=== PATIENT | female | born 1990 | race American Indian/Alaskan Native ===

== ENCOUNTER 2017-08-08 13:19 | Emergency (ER) | payer MEDICAID ==
[2017-08-08 13:46] VITALS: BP 130/90
[2017-08-08] MEDS ORDERED: BENADRYL IM ONE (14:15)
[2017-08-08] MEDS ORDERED: REGLAN IM STA (14:15)
[2017-08-08] MEDS ORDERED: DECADRON IM ONE (14:15)
--- NOTE | 2017-08-08 15:36 | Emergency Department Report ---
HPI - General Chief Complaint: Allergic Reaction Time Seen by Provider: 08/08/17 14:09 - HPI HPI: pt is a 27+ y/o aaf nmh who presents for allergic reaction itching lip and tongue swelling after using cleaning chemical last night at work. 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 ED Past Medical Hx - Past Medical History Previous Medical History?: No - Surgical History Past Surgical History?: No - Social History Smoking Status: Never Smoker Substance Use Type: None - Medications Home Medications: Home Medications Medication Instructions Recorded Confirmed Last Taken Type Dexamethasone [Decadron] 4 mg PO Q12H #10 tablet 08/08/17 Unknown Rx EPINEPHrine [Epipen 2-Kris] 0.3 mg IJ ONCE #2 auto.injct 08/08/17 Unknown Rx Metoclopramide [Reglan] 10 mg PO TID #28 tab 08/08/17 Unknown Rx diphenhydrAMINE [Benadryl CAP] 25 mg PO Q6HR PRN #30 capsule 08/08/17 Unknown Rx ED Review of Systems ROS: Stated complaint: POSSIBLE ALLERGIC REACTION Other details as noted in HPI Constitutional: denies: chills, fever Eyes: denies: eye pain, eye discharge, vision change ENT: denies: ear pain, throat pain Respiratory: denies: cough, orthopnea, shortness of breath, SOB with exertion, stridor, wheezing Cardiovascular: denies: chest pain, palpitations Endocrine: no symptoms reported Gastrointestinal: denies: abdominal pain, nausea, diarrhea Genitourinary: denies: urgency, dysuria, discharge Musculoskeletal: denies: back pain, joint swelling, arthralgia Skin: denies: rash, lesions Neurological: denies: headache, weakness, paresthesias Psychiatric: denies: anxiety, depression Hematological/Lymphatic: denies: easy bleeding, easy bruising Physical Exam - Physical Exam Vital Signs: Vital Signs 08/08/17 13:41 Temperature 98.6 F Pulse Rate 88 Respiratory 16 Rate Blood Pressure 130/90 O2 Sat by Pulse 100 Oximetry General: pt appears nontoxic a/o x 3 there is no rash hive mild swelling to left lower lip and tongue no blisters no lesion no exudate no stridor uvula midline airway is patent lungs clear bilat no wheezing. Physical Exam: a/o x 3 there is no rash hive mild swelling to left lower lip and tongue no blisters no lesion no exudate no stridor uvula midline airway is patent lungs clear bilat no wheezing. ED Course Vital Signs 08/08/17 13:41 Temperature 98.6 F Pulse Rate 88 Respiratory 16 Rate Blood Pressure 130/90 O2 Sat by Pulse 100 Oximetry ED Medical Decision Making - Medical Decision Making pt is a 27+ y/o aaf vth who presents for allergic reaction itching lip and tongue swelling after using cleaning chemical last night at work. 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 pt given decadron, benadryl, and reglan in ed resulting in resolution of symptoms exam: pt appears nontoxic a/o x 3 there is no rash hive mild swelling to left lower lip and tongue no blisters no lesion no exudate no stridor uvula midline airway is patent lungs clear bilat no wheezing. pt advises symptoms relieved will dc to home with benadry, reglan, decadron pt given directions on when to return to ed include increased sob, worsening symptoms and epipen teaching pt verbalized agreement and understanding of discharge plan. Critical care attestation.: If time is entered above; I have spent that time in minutes in the direct care of this critically ill patient, excluding procedure time. ED Disposition Clinical Impression: Allergic reaction Qualifiers: Encounter type: initial encounter Qualified Code(s): T78.40XA - Allergy, unspecified, initial encounter Disposition: DC-01 TO HOME OR SELFCARE Is pt being admited?: No Does the pt Need Aspirin: No Condition: Good Instructions: Allergies (ED), Epinephrine (Injection) Prescriptions: Dexamethasone [Decadron] 4 mg PO Q12H #10 tablet diphenhydrAMINE [Benadryl CAP] 25 mg PO Q6HR PRN #30 capsule PRN Reason: Allergic Reaction EPINEPHrine [Epipen 2-Kris] 0.3 mg IJ ONCE #2 auto.injct Metoclopramide [Reglan] 10 mg PO TID #28 tab Referrals: PRIMARY CARE,MD [Primary Care Provider] - 3-5 Days Forms: Work/School Release Form(ED) Time of Disposition: 15:45
== END 2017-08-08 15:59 | disposition home or self-care (01) ==
LOC: ED 13:19
DX: T78.40XA Allergy, unspecified, initial encounter (principal); Y92.9 Unspecified place or not applicable
CPT/HCPCS: 96372; 99282; J1100; J1200; J2765

== ENCOUNTER 2017-09-19 17:57 | Emergency (ER) | payer MEDICAID | END 2017-09-19 18:12 | disposition left against medical advice (07) | LOC: ED 17:57 | DX: R21 Rash and other nonspecific skin eruption (principal); Z53.21 Procedure and treatment not carried out due to patient leaving prior to being seen by health care provider ==

== ENCOUNTER 2018-05-22 17:24 | Emergency (ER) | payer MEDICAID ==
[2018-05-22 17:37] VITALS: BP 140/93
--- NOTE | 2018-05-22 20:29 | Emergency Department Report ---
[facility] Chief Complaint: Eye Problems Stated Complaint: RED EYE Time Seen by Provider: 05/22/18 19:42 Duration: 3 Days Side: Bilateral Severity: mild Symptoms: Yes Eye Itching, Yes Eye Redness, No Eye Pain, No Mucous Drainage, No Purulent Drainage, No Blurred Vision, No Preceding URI, No H/O Allergic Rhinitis , No Contact Lens Use, No Trauma, No Fever, No Headache Other History: This is a 28-year-old female nontoxic, well nourished in appearance, no acute signs of distress presents to the ED with c/o of bilateral eyes redness, crusting and itching 3 days. Patient stated that symptoms occurred on the right side and now the eyes have these symptoms. Patient denies any blurry vision or visual changes. Patient denies any trauma to the eyes. Patient denies any fever, chills, nausea, vomiting, chest pain, shortness of breath, headache or stiff neck. Patient denies any pain in the eyes. Patient denies any allergies or significant past medical history. ED Review of Systems ROS: Stated complaint: RED EYE Other details as noted in HPI Constitutional: denies: chills, fever Eyes: eye discharge. denies: eye pain, vision change ENT: denies: ear pain, throat pain Respiratory: denies: cough, shortness of breath, wheezing Cardiovascular: denies: chest pain, palpitations Endocrine: no symptoms reported Gastrointestinal: denies: abdominal pain, nausea, diarrhea Genitourinary: denies: urgency, dysuria, discharge Musculoskeletal: denies: back pain, joint swelling, arthralgia Skin: denies: rash, lesions Neurological: denies: headache, weakness, paresthesias Psychiatric: denies: anxiety, depression Hematological/Lymphatic: denies: easy bleeding, easy bruising ED Past Medical Hx - Past Medical History Previous Medical History?: No - Surgical History Past Surgical History?: No - Social History Smoking Status: Never Smoker Substance Use Type: None - Medications Home Medications: Home Medications Medication Instructions Recorded Confirmed Last Taken Type Dexamethasone [Decadron] 4 mg PO Q12H #10 tablet 08/08/17 Unknown Rx EPINEPHrine [Epipen 2-Kris] 0.3 mg IJ ONCE #2 auto.injct 08/08/17 Unknown Rx Metoclopramide [Reglan] 10 mg PO TID #28 tab 08/08/17 Unknown Rx diphenhydrAMINE [Benadryl CAP] 25 mg PO Q6HR PRN #30 capsule 08/08/17 Unknown Rx Ciprofloxacin 0.3% (Nf) 2 drops OP BID 7 Days #1 drops 05/22/18 Unknown Rx [Ciprofloxacin OPTH] [facility] Exam - Exam General: Vital signs noted. No distress. Alert and acting appropriately. Eye Exam: Neither Injection, Neither Chemosis, Neither Abnormal Pupil, Neither EOMI, Neither Eye Foreign Body, Neither Lid Foreign Body, Neither Mucous Discharge, Neither Purulent Discharge, Neither Fluorescein Uptake, Neither Fluorescein Uptake (slit lamp), Neither Cell/Flare (slit lamp), Neither Corneal Edema, Neither Photophobia HEENT: No Nasal Congestion, No Pharyngeal Erythema Remainder of HEENT: Normal Lungs: Yes Clear Lung Sounds, Yes Good Air Exchange, No Wheezes, No Stridor, No Cough, No Nasal Flaring, No Retractions, No Use of Accessory Muscles ED Course Vital Signs 05/22/18 17:34 Temperature 98.5 F Pulse Rate 90 Respiratory 16 Rate Blood Pressure 140/93 O2 Sat by Pulse 100 Oximetry - Reevaluation(s) Reevaluation #1: 05/22/18 20:28 Patient is speaking in full sentences with no signs of distress noted. Critical care attestation.: If time is entered above; I have spent that time in minutes in the direct care of this critically ill patient, excluding procedure time. ED Disposition Clinical Impression: Conjunctivitis, both eyes Qualifiers: Conjunctivitis type: acute Acute conjunctivitis type: bacterial Qualified Code( s): H10.33 - Unspecified acute conjunctivitis, bilateral Disposition: DC- TO HOME OR SELFCARE Is pt being admited?: No Does the pt Need Aspirin: No Condition: Stable Instructions: Conjunctivitis (ED) Additional Instructions: Follow-up with a [employer] doctor in 3-5 days or if symptoms worsen and continue return to emergency room as soon as possible. Prescriptions: Ciprofloxacin 0.3% (Nf) [Ciprofloxacin OPTH] 2 drops OP BID 7 Days #1 drops Referrals: PRIMARY CAREMD [Primary Care Provider] - 3-5 Days NICKOLAS BORJA MD [Staff Physician] - 3-5 Days [facility] [Outside] - 3-5 Days [facility] [Outside] - 3-5 Days Forms: Work/School Release Form(ED)
== END 2018-05-22 20:46 | disposition home or self-care (01) ==
LOC: ED 17:24
DX: H10.9 Unspecified conjunctivitis (principal)
CPT/HCPCS: 99282